=== PATIENT | female | born 2000 | race Hispanic/Latino ===

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

== ENCOUNTER 2022-05-15 14:53 | Emergency (ER) | payer OTHER ==
[2022-05-15] MEDS ORDERED: Ketorolac Tromethamine 30 MG/ML VIAL ONE (16:32)
== END 2022-05-15 16:52 | disposition home or self-care (01) ==
LOC: ERS 14:53
DX: M25.511 Pain in right shoulder (principal); R07.9 Chest pain, unspecified; V49.9XXA Car occupant (driver) (passenger) injured in unspecified traffic accident, initial encounter
CPT/HCPCS: 71046; 93005; 96372; J1885